=== PATIENT | male | born 1960 | race Caucasian/White ===

== ENCOUNTER 2018-09-17 13:40 | Inpatient (IN) | payer SELFPAY ==
[~2018-09-17] VITALS: Ht 177.8 cm; Wt 120.1 kg
[2018-09-17 14:18] LABS: BASOPHILS ABSOLUTE AUTO 0.02 K/mm3 (0.00-0.23); BASOPHILS PERCENT AUTO 0 % (0-2); EOSINOPHILS PERCENT AUTO 0 % (0-6); Hematocrit 50.3 % (33.0-51.0); Hemoglobin 16.3 g/dL (11.5-16.0); IMMATURE GRAN ABSOLUTE AUTO 0.03 K/mm3 (0.00-0.10); IMMATURE GRAN PERCENT AUTO 0 % (0-1); LYMPHOCYTES ABSOLUTE AUTO 0.76 K/mm3 (0.84-5.20); LYMPHOCYTES PERCENT AUTO 8 % (21-46); MONOCYTES PERCENT AUTO 9 % (4-13); Mean Corpuscular HGB 27.2 pg (26.0-34.0); Mean Corpuscular HGB Conc 32.4 g/dL (31.5-36.5); Mean Corpuscular Volume 84 fL (80-100); Mean Platelet Volume 9.7 fL (9.1-12.4); NEUTROPHILS ABSOLUTE AUTO 7.49 K/mm3 (1.96-9.15); NEUTROPHILS PERCENT AUTO 82 % (41-73); Platelet Count 257 K/mm3 (150-400); RDW Coefficient Variation 14.7 % (11.7-14.2); RDW Standard Deviation 45.1 fL (35.1-46.3)
[2018-09-17 14:42] LABS: Bilirubin, Total 0.8 mg/dL (0.1-1.0); Bun/Creatinine Ratio 9.9 (12.0-20.0); Calcium, Blood 8.9 mg/dL (8.5-10.1); Creatinine, Blood 1.21 mg/dL (0.40-1.00); Globulin, Blood 4.1 g/dL (2.2-4.0); Potassium, Blood 3.7 mmol/L (3.5-5.5); Total Protein, Blood 8.1 g/dL (6.4-8.2)
[2018-09-17 14:51] LABS: Troponin I 3.91 ng/mL (0.000-0.040)
[2018-09-17 15:06] LABS: Source, Urine Clean Catch
[2018-09-17 15:15] LABS: Bilirubin, Urine Neg (Neg); Blood, Urine 4+ (Neg); Glucose Qualitative, Urine Neg (Neg); Ketones, Urine 1+ (Neg); Leukocyte Esterase, Urine 1+ (Neg); Nitrite, Urine Neg (Neg); Protein, Urine 2+ (Neg); Specific Gravity, Urine 1.025 (1.003-1.022); Urobilinogen, Urine 1+ (Normal)
[2018-09-17 15:21] LABS: Appearance, Urine Clear (Clear); Color, Urine Yellow (P-Yellow)
[2018-09-17 15:22] LABS: Bacteria Mod /hpf; Mucus Heavy (0-Heavy); Squamous Epithelial Cells Mod /hpf (Few)
[2018-09-17 15:28] LABS: International Normalized Ratio 1.02; Prothrombin Time Results 10.8 Sec (9.7-11.5)
--- NOTE | 2018-09-17 16:22 | NUR ---
ECHOCARDIOGRAM COMPLETE
[2018-09-17] MEDS ORDERED: LOSA50 PO (16:26)
[2018-09-17] MEDS ORDERED: NIFE30ER PO (16:26)
--- NOTE | 2018-09-17 17:56 | NUR ---
PATIENT ADMITTED TO ICU 15 AFTER REPORT FROM KOURTNEY RANGEL. DENIES CHEST PAIN. STATES HE HAS NEVER EXPERIENCED CHEST PAIN. HEPARIN GTT AT 13 UNITS/KG/HR. NS 75 ML/HR. NPO FOR TAX ANALYST. AT BEDSIDE
--- NOTE | 2018-09-17 18:07 | NUR ---
CONSULTED DR. ADAMSON FOR CONSISTENTLY HIGH SBP. ORDER FOR 2" NTG PASTE
--- NOTE | 2018-09-17 19:00 | NUR ---
2" NTG PASTE APPLIED TO LEFT CHEST. REPORT GIVEN TO KOURTNEY SIMMONS.
--- NOTE | 2018-09-17 20:13 | NUR ---
ASSUMED CARE OF PT AT 1915. REPORT RECEIVED AT BEDSIDE. PT PRESENTS IN BED. ALERT AND ORIENTED. PLEASANT AND COOPERATIVE WITH CARE AND ASSESSMENT. PT DENIES CHEST PAIN OR PRESSURE. CALL MADE TO DR ADAMSON TO INFORM OF TROPONIN LEVEL. ORDER RECEIVED FOR [facility] FOR BLOOD PRESSURE CONTROL. PT PENDING GOING TO CASING SPLITTER THIS NIGHT.
--- NOTE | 2018-09-17 20:27 | NUR ---
PT LEAVES TO VENDER AT 2022. PT CONTINUES WITHOUT COMPLAINTS OF CHEST PAIN OR PRESSURE. PLEASE NOTE VITAL SIGN FLOWSHEET. BLOOD PRESSURES BEGINNING TO RESPOND TO NORVASC, AND NITRO PASTE. WILL REVIEW CHART AND PLAN OF CARE FOR THIS PT.
--- NOTE | 2018-09-17 23:01 | NUR ---
PT RETURNS FROM BUILDING OFFICIAL AT 2244. PT DENIES CHEST PAIN OR PRESSURE. HAS RIGHT RADIAL ACCESS WITH TR BAND INFLATED TO 14 ML. ALLOWED PT TO HAVE ICE WATER WITH CAUTIONS TO GO SLOW. PT VOICES UNDERSTANDING. PT'S IN ROOM. NO HEMATOMA OR OZZING FROM RIGHT RADIAL ACCESS.
--- NOTE | 2018-09-18 02:00 | NUR ---
PT CONTINUES ON AGGRASTAT UNTIL THIS AM AT 0925. TR BAND REMAINS IN PLACE WITHOUT OOZING. HAVE BEGAN DEFLATION OF CUFF. PT DOES NEED SOME REMINDERS TO PROTECT RIGHT WRIST SECONDARY TO PUNCTURE SITE. WILL CONTINUE TO MONITOR PT.
[2018-09-18 02:34] LABS: BASOPHILS ABSOLUTE AUTO 0.03 K/mm3 (0.00-0.23); BASOPHILS PERCENT AUTO 0 % (0-2); EOSINOPHILS ABSOLUTE AUTO 0.01 K/mm3 (0.00-0.68); EOSINOPHILS PERCENT AUTO 0 % (0-6); Hematocrit 43.3 % (37.0-53.0); Hemoglobin 13.8 g/dL (13.5-17.5); IMMATURE GRAN ABSOLUTE AUTO 0.01 K/mm3 (0.00-0.10); IMMATURE GRAN PERCENT AUTO 0 % (0-1); LYMPHOCYTES PERCENT AUTO 10 % (21-46); MONOCYTES ABSOLUTE AUTO 0.78 K/mm3 (0.16-1.47); MONOCYTES PERCENT AUTO 10 % (4-13); Mean Corpuscular HGB 26.8 pg (26.0-34.0); Mean Corpuscular HGB Conc 31.9 g/dL (31.5-36.5); Mean Corpuscular Volume 84 fL (80-100); Mean Platelet Volume 9.6 fL (9.1-12.4); NEUTROPHILS ABSOLUTE AUTO 6.26 K/mm3 (1.96-9.15); NEUTROPHILS PERCENT AUTO 79 % (41-73); Platelet Count 245 K/mm3 (150-400); RDW Coefficient Variation 14.7 % (11.7-14.2); RDW Standard Deviation 45.3 fL (35.1-46.3); Red Blood Cell Count 5.15 M/mm3 (4.30-5.90); White Blood Cell Count 7.89 K/mm3 (4.00-11.30)
[2018-09-18 02:54] LABS: Alanine Aminotransfer (ALT/SGP 24 U/L (12-78); Albumin, Blood 3.1 g/dL (3.4-5.0); Albumin/Globulin Ratio 0.8 (0.8-1.8); Alk Phos 62 U/L (50-136); Anion Gap 6 mmol/L (6-16); Aspartate Aminotrans (AST/SGOT 31 U/L (12-37); Bilirubin, Total 0.6 mg/dL (0.1-1.0); Blood Urea Nitrogen 12 mg/dL (8-24); Bun/Creatinine Ratio 11.7 (12.0-20.0); CHOL/HDL RATIO 4.1; CO2, Blood 23 mmol/L (21-32); Chloride, Blood 107 mmol/L (98-108); Cholesterol 136 mg/dL (50-200); Creatinine, Blood 1.03 mg/dL (0.60-1.20); Globulin, Blood 3.7 g/dL (2.2-4.0); Glomerular Filtration Rate >60 (60-); Glucose, Blood 123 mg/dL (70-99); HDL Cholesterol 33 mg/dL (>39); LDL/HDL RATIO 2.5; Low Density Lipoprotein Chol 83 mg/dL (0-110); Magnesium, Blood 1.9 mg/dL (1.6-2.4); Potassium, Blood 3.6 mmol/L (3.5-5.5); Sodium, Blood 136 mmol/L (136-145); Total Protein, Blood 6.8 g/dL (6.4-8.2); Triglycerides 102 mg/dL (30-160); Very Low Density Lipoprot Chol 20 mg/dL (6-32)
--- NOTE | 2018-09-18 05:28 | NUR ---
TR BAND OFF AND TRANSPARENT DRESSING OVER PUNCTURE SITE. NO S/S OOZING OR HEMATOMA TO NOTE. PT DID HAVE ONE BOUT OF NAUSEA WITH SOME CHEST DISCOMFORT. ADMINISTERED 4 MG MORPHINE WELL 4 MG ZOFRAN WITH GOOD RELIEF. WILL CONTINUE TO MONITOR PT, AND WILL REPORT OFF TO ONCOMING RN.
--- NOTE | 2018-09-18 06:56 | NUR ---
ASSUMED CARE REPORT FROM KOURTNEY SIMMONS. PATIENT SLEEPING WHEN NOT DISTURBED. DENIES CHEST PAIN. RADIAL SITE CLEAR, NO SIGN OF BLEEDING OR HEMATOMA ARM BOARD ON. AGGRASTAT AT .15 MCG/KG/MIN UNTIL 0945
--- NOTE | 2018-09-18 10:17 | NUR ---
MD VISITS DR. RENTERIA IN 0800. DR. ADAMSON IN 1000. ORDERS RECEIVED AND IMPLEMENTED. PATIENT WILL STAY IN HOSPITAL UNTIL AFTER REPEAT ANGIOGRAM
--- NOTE | 2018-09-18 15:10 | NUR ---
PATIENT C/O FEELING UNWELL, AND "WEIRD" SLIGHTLY NAUSEAUS. RESTING IN BED. ZOFRAN GIVEN.
--- NOTE | 2018-09-18 16:00 | NUR ---
PT OFF MONITOR FOR SHOWER. AMBULATED WITH TELE BOX
--- NOTE | 2018-09-18 20:00 | NUR ---
RECEIVED HAND OFF FROM KOURTNEY MIRANDA USING SBAR DURING BEDSIDE REPORT. LYING IN SEMI FOWLERS WITH EYES CLOSED. AAO X3, GARCÍA, FOLLOWS ALL COMMANDS. ORIENTED TO ROOM, CALL SYSTEM, AND POC, VOICES UNDERSTANDING. RESPIRATIONS EVEN AND UNLABORED ON ROOM AIR. LUNG SOUNDS CLEAR BILATERALLY. ABDOMEN SOFT AND NONDIOSTENDED. BOWEL SOUNDS PRESENT IN ALL QUADS. CONTINENT OF BOWEL AND BLADDER. STATES LAST BM WAS TODAY. DENIES PAIN, BUT STATED THAT HE WILL OCCASIONALLY FEEL SOME DISCOMFORT IN HIS CHEST, BUT IT DOESN'T LAST LONG. RIGHT HAND SL 20G PIV IS PATENT, FLUSHING WITH EASE. LEFT FA 20G SL PIV IS PATENT, FLUSHING WITH EASE. DENIES FUTHER NEEDS OR WANTS AT THIS TIME. SAFETY MEAUSRES IN PLACE. WILL CONTINUE TO MONITOR.
--- NOTE | 2018-09-19 | NUR ---
LYING IN SEMI FOWLERS WITH EYES CLOSED. RESPIRATIONS EVEN AND UNLABORED ON ROOM AIR. NO CHANGES FROM START OF SHIFT. DENIES PAIN, DISCOMFORT, OR FURTHER NEEDS AT THIS TIME. SAFETY MEASURES IN PLACE. WILL CONTINUE TO MONITOR.
--- NOTE | 2018-09-19 05:24 | NUR ---
SHIFT SUMMARY HAS HAD A GOOD SHIFT, NO C/O PAIN OR DISCOMFORT. VSS NO ACUTE DISTRESS NOTED. HAS BEEN NPO PAST [place] FOR HEART CATH THIS MORNING. DENIES FURTHER NEEDS OR WANTS AT THIS TIME. SAFETY MEASURES IN PLACE. WILL GIVE HAND OFF TO ONCOMING SHIFT USING SBAR.
--- NOTE | 2018-09-19 06:05 | NUR ---
C/O CP 05/30 BUT REFUSED OFFER OF MEDS UNTIL NURSING REITERATED THAT MORPHINE INCREASES OXYGENATION. REFUSED OFFER FOR 5MG OF MORPHINE, BUT AGREED TO TAKE 2MG MORPHINE. WILL CONTINUE TO MONITOR.
--- NOTE | 2018-09-19 08:29 | NUR ---
PT AWAKE, RESTING IN BED. AT BEDSIDE. VSS WITH OCC HTN. AM MEDS GIVEN W SMALL SIP OF WATER. PT NPO OTHERWISE FOR INSPECTOR RAW QUARTZ THIS AM. PT VERY ANXIOUS. PT STATES HE HAS SHARP PAIN AT EPIGASTRIM AREA WITH DEEP BREATH. PAIN 4/10, NO CHEST PAIN OTHERWISE. DENIES SOB, NAUSEA.
--- NOTE | 2018-09-19 12:42 | NUR ---
PT IN ROUTE TO ROUTE RELIEF DRIVER WITH HC RN VIA [facility]
--- NOTE | 2018-09-19 13:38 | NUR ---
PT BACK FROM BIOLOGICAL INSPECTOR AT 1335. PT AWAKE. CHEST DISCOMFORT REMAINS THE SAME PRE-PROCEDURE; 4/10 SHARP SUBSTERNAL PAIN ONLY WITH A DEEP BREATH. PT DENIES NAUSEA, SOB. PER REPORT RCA HAS POOR FLOW BUT SIGNIFICANT COLLATERAL CIRCULATION. TR BAND TO RIGHT WRIST; CIRC CHECK WNL. 12CC AIR TO BALLOON. VSS
--- NOTE | 2018-09-19 14:02 | NUR ---
PT C/O NUMBNESS TO RIGHT FINGER TIPS. FINGERS DUSKY W REDUCED CAP REFILL. 2CC AIR SLOWLY REMOVED FROM TR BAND BALLOON; NO BLEEDING OCCURED.
--- NOTE | 2018-09-19 14:06 | NUR ---
PT STATES NUMBNESS IS MUCH IMPROVED, COLOR IS IMPROVED WELL CAP REFILL WHICH IS NOW WNL. NO BLEEDING OR SWELLING NOTED AT RIGHT ART SITE. PT DRINKING WATER AND TOLERATING WELL.
--- NOTE | 2018-09-19 14:20 | NUR ---
RIGHT TR BAND SITE WNL, NO HEMATOMA OR SWELLING, CAP REFILL WNL. PT DENIES C/O PAIN. VSS
--- NOTE | 2018-09-19 14:35 | NUR ---
RIGHT TR BAND/WRIST REMAINS STABLE. PT RESTING W/O COMPLAINTS.
--- NOTE | 2018-09-19 14:48 | NUR ---
PT'S RIGHT TR BAND/WRIST WNL, NO SWELLING, BLEEDING, OR PAIN. CIRC CHECK WNL. PT RESTING W/O COMPLAINTS
--- NOTE | 2018-09-19 15:20 | NUR ---
PT AWAKE, RESTING BED W/O COMPLAINTS. RIGHT TR BAND REMAINS STABLE/WNL
--- NOTE | 2018-09-19 15:50 | NUR ---
NO CHANGE IN PT, RIGHT WRIST REMAINS STABLE
--- NOTE | 2018-09-19 16:50 | NUR ---
NO CHANGE IN PT, RIGHT WRIST REMAINS STABLE
--- NOTE | 2018-09-19 17:33 | NUR ---
AIR REMOVED SLOWLY FROM TR BAND OVER 30MIN. SITE W/O SWELLING, BLEEDING, HEMATOMA. CIRC CHECK WNL. CLEAR OPSITE PLACED OVER PUNCTURE SITE. WRIST IMMOBILIZER IN PLACE. PT DENIES CMPLAINTS. DR ADAMSON GIVEN UPDATE. PT MAY BE DC'D HOME TOMORROW. PT NOW PCU STATUS.
--- NOTE | 2018-09-19 20:00 | NUR ---
RECEIVED HAND OFF FROM KOURTNEY DAVIS USING SBAR DURING BEDSIDE REPORT. LYING IN SEMI FOWLERS WITH EYES OPEN. AAO X3, GARCÍA, FOLLOWS ALL COMMANDS. ORIENTED TO ROOM, CALL SYSTEM, AND POC, VOICES UNDERSTANDING. RESPIRATIONS EVEN AND UNLABORED ON ROOM AIR. LUNG SOUNDS CLEAR BILATERALLY. ABDOMEN SOFT AND NONDIOSTENDED. BOWEL SOUNDS PRESENT IN ALL QUADS. CONTINENT OF BOWEL AND BLADDER. STATES LAST BM WAS TODAY. DENIES PAIN, BUT STATED THAT HE WILL OCCASIONALLY FEEL SOME DISCOMFORT IN HIS CHEST WHEN HE DEEP BREATHES. RIGHT WRIST OPSITE DRESSING TO RADIAL ACCESS POINT IS C/D/I. GOOD DISTAL PULSES, WARM EXTREMITY, NO OOZING OR HEMATOMA NOTED. RIGHT HAND SL 20G PIV REMOVED PER PT REQUEST D/T PRESSURE FROM ARM IMMOBILIZER IN PLACE. LEFT FA 20G SL PIV IS PATENT, FLUSHING WITH EASE. DENIES FUTHER NEEDS OR WANTS AT THIS TIME. SAFETY MEAUSRES IN PLACE. WILL CONTINUE TO MONITOR.
--- NOTE | 2018-09-20 06:46 | NUR ---
SHIFT SUMMARY HAS HAD A GOOD SHIFT, NO C/O PAIN OR DISCOMFORT. VSS, NO ACUTE DISTRESS NOTED. RADIAL INSERTION SITE CONTINUES TO BE C/D/I. DENIES FURTHER NEEDS OR WANTS AT THIS TIME. POSS D/C TODAY. SAFETY MEASURES IN PLACE. WILL GIVE HAND OFF TO ONCOMING SHIFT USING SBAR.
--- NOTE | 2018-09-20 07:30 | NUR ---
ASSUMED CARE: PT ALERT AND ORIENTED, SITTING UP AT SIDE OF BED. RADIAL SITE SOFT, NONTENDER, NO SIGNS OF BLEEDING OR HEMATOMA. DENIES FURTHER NEEDS OR CONCERNS AT THIS TIME.
--- NOTE | 2018-09-20 09:56 | NUR ---
CALLED IN RX'S TO [facility] IN [place].
[2018-09-20] MEDS ORDERED: AMLO10 PO (10:02)
[2018-09-20] MEDS ORDERED: ASPI81CH PO (10:03)
[2018-09-20] MEDS ORDERED: Isosorbide Mono30 MG PO (10:04)
[2018-09-20] MEDS ORDERED: Toprol Xl50 MG PO (10:05)
[2018-09-20] MEDS ORDERED: TICA90TA PO (10:06)
--- NOTE | 2018-09-20 10:35 | NUR ---
PT'S IV DC'D WNL BY KOURTNEY MIRANDA. INSTRUCTIONS GIVEN TO PT ABOUT RADIAL SITE CARE AND FURTHER DC INSTRUCTIONS BY TA OCONNELL. PT AMBULATORY UPON DC. DENIES FURTHER QUESTIONS OR CONCERNS.
== END 2018-09-20 10:35 | disposition home or self-care (01) | DRG 249 ==
LOC: EDSEX 13:40 → ER 13:40 → ICUW 15:12
PROVIDERS: Emergency Medicine; Physician Assistant; ADMIT Internal Medicine
PROC: 02703EZ Dilation of Coronary Artery, One Artery with Two Intraluminal Devices, Percutaneous Approach (ICD-10-PCS; principal; 2018-09-17)
PROC: B2111ZZ Fluoroscopy of Multiple Coronary Arteries using Low Osmolar Contrast (ICD-10-PCS; 2018-09-17)
PROC: 3E073GC Introduction of Other Therapeutic Substance into Coronary Artery, Percutaneous Approach (ICD-10-PCS; 2018-09-17)
PROC: B2111ZZ Fluoroscopy of Multiple Coronary Arteries using Low Osmolar Contrast (ICD-10-PCS; 2018-09-19)
DX: I21.4 Non-ST elevation (NSTEMI) myocardial infarction (principal); N39.0 Urinary tract infection, site not specified; T82.855A Stenosis of coronary artery stent, initial encounter; N18.1 Chronic kidney disease, stage 1; I12.9 Hypertensive chronic kidney disease with stage 1 through stage 4 chronic kidney disease, or unspecified chronic kidney disease; E78.5 Hyperlipidemia, unspecified
CPT/HCPCS: 36415; 71046; 76770; 80053; 80061; 81001; 83605; 83735; 83880; 84145; 84484; 85025; 85347; 85610; 85730; 87040; 87086; 92928; 92978; 93005; 93010; 93306; 93454; 93458; 93571; 93572; 96365-59; 96375-59; 99152; 99153; 99285-25; A9270; C1725; C1753; C1757; C1769; C1876; C1887; C1894; J0153; J0461; J0696; J1644; J2250; J2270; J2405; J3010; J3246; J7030; J7040; Q9967